=== PATIENT | female | born 1965 | race Caucasian/White ===

== ENCOUNTER 2018-09-19 17:05 | Emergency (ER) | payer MEDICAID ==
[~2018-09-19] VITALS: Ht 162.6 cm; Wt 56.8 kg
[2018-09-19 17:36] VITALS: BP 121/80
--- NOTE | 2018-09-19 18:20 | NUR ---
I GAVE PT ICE PACK FOR BACK AND NECK PAIN.
[2018-09-19] MEDS ORDERED: CYCL-1 PO (18:29)
[2018-09-19] MEDS ORDERED: IBUP-1985 PO (18:29)
== END 2018-09-19 18:41 | disposition home or self-care (01) ==
LOC: ER 17:06
DX: S29.012A Strain of muscle and tendon of back wall of thorax, initial encounter (principal); S16.1XXA Strain of muscle, fascia and tendon at neck level, initial encounter; G89.29 Other chronic pain; F17.200 Nicotine dependence, unspecified, uncomplicated; Z79.899 Other long term (current) drug therapy; X50.0XXA Overexertion from strenuous movement or load, initial encounter; Y93.89 Activity, other specified; Y92.89 Other specified places as the place of occurrence of the external cause; Y99.8 Other external cause status
CPT/HCPCS: 99283